=== PATIENT | male | born 1970 | race Caucasian/White ===

== ENCOUNTER 2022-04-30 09:29 | Emergency (ER) | payer OTHER ==
[~2022-04-30] VITALS: Ht 170.2 cm; Wt 97.7 kg
[2022-04-30] MEDS ORDERED: IBUPROFEN 600 MG TABLET PO ONE (09:45)
[2022-04-30 09:59] LABS: COVID AG,FIA SOURCE NASOPHARYNGEAL
[2022-04-30 10:04] LABS: BASOPHILS % (AUTO) 0.5 % (0.0-2.0); EOSINOPHILS % (AUTO) 2.1 % (1.0-6.0); HEMATOCRIT 46.5 % (41-53); HEMOGLOBIN 15.7 g/dL (13.5-17.5); LYMPHOCYTES # (AUTO) 1.2 K/uL (1.0-4.8); MEAN CORPUSCULAR HEMOGLOBIN 30.3 pg (26.0-34.0); MEAN CORPUSCULAR HGB CONC 33.8 G/dL (31.0-37.0); MEAN CORPUSCULAR VOLUME 90 fL (80-100); MONOCYTES # (AUTO) 0.8 K/uL (0.1-1.0); MONOCYTES % (AUTO) 11.9 % (2.0-9.0); NEUTROPHILS # (AUTO) 4.6 K/uL (1.8-7.7); NEUTROPHILS % (AUTO) 67.5 % (40.0-70.0); PLATELET COUNT (AUTO) 232 K/uL (150-450); RED BLOOD CELL COUNT(AUTO) 5.18 MIL/uL (4.50-5.90); RED CELL DISTRIBUTION WIDTH 13.3 % (11.5-14.5)
[2022-04-30 10:16] LABS: ANION GAP 6 mmol/L (8-16); CALCIUM, TOTAL 8.6 mg/dL (8.8-10.5); CARBON DIOXIDE 27 mmol/L (22-29); CHLORIDE 104 mmol/L (98-107); CREATININE 0.93 mg/dL (0.60-1.30); GLOMERULAR FILTR. RATE CALC > 60 mL/min (>60); GLUCOSE,RANDOM 103 mg/dL (70-110); POTASSIUM 3.7 mmol/L (3.5-5.1); SODIUM SERUM 137 mmol/L (136-145); UREA NITROGEN, BLOOD 13 mg/dL (7-18)
[2022-04-30 10:21] LABS: INFLUENZA TYPE A NEGATIVE FOR TYPE A (NEGATIVE); INFLUENZA TYPE B NEGATIVE FOR TYPE B (NEGATIVE)
[2022-04-30 11:09] LABS: RAPID GROUP A STREP NEGATIVE (NEGATIVE)
[2022-04-30 11:29] VITALS: BP 121/90
[2022-04-30] MEDS ORDERED: IBUP-1492 PO (11:35)
[2022-04-30] MEDS ORDERED: BENZ-227 PO (11:35)
== END 2022-04-30 12:20 | disposition home or self-care (01) ==
LOC: EMS 09:34
DX: R07.89 Other chest pain (principal); J02.9 Acute pharyngitis, unspecified; J40 Bronchitis, not specified as acute or chronic; I10 Essential (primary) hypertension; Z20.822 Contact with and (suspected) exposure to COVID-19
CPT/HCPCS: 71045; 80048; 84484; 85025; 87430; 87804; 93005; 99285; 36415-L1; 36415-TC

== ENCOUNTER 2024-04-20 12:57 | Emergency (ER) | payer OTHER ==
[~2024-04-20] VITALS: Ht 172.7 cm; Wt 86.4 kg
[~2024-04-20 12:57] MED LIST: BENZ-227 PO; IBUP-1492 PO
[2024-04-20 13:31] VITALS: TEMP 98.7
[2024-04-20 13:41] LABS: COVID AG,FIA SOURCE NASAL SWAB
[2024-04-20 14:17] LABS: INFLUENZA TYPE A NEGATIVE FOR TYPE A (NEGATIVE); INFLUENZA TYPE B NEGATIVE FOR TYPE B (NEGATIVE); SARS-COV2 (COVID) ANTIGEN,FIA Negative (Negative)
[2024-04-20] MEDS: AMOX TR/POT CLAV 875 MG/125 MG TABLET PO ONE (16:06)
[2024-04-20] MEDS: BENZONATATE 100 MG CAPSULE PO ONE (16:06)
[2024-04-20] MEDS ORDERED: AMOX-457 PO (17:25)
[2024-04-20] MEDS ORDERED: ALBU18HF12 IH (17:25)
[2024-04-20] MEDS ORDERED: IBUP-1492 PO (17:25)
[2024-04-20] MEDS ORDERED: BENZ-227 PO (17:25)
[2024-04-20 17:37] VITALS: BP 144/82; PULSE 81; RESP 16; O2SAT 97
== END 2024-04-20 17:38 | disposition home or self-care (01) ==
LOC: EMS 12:57
DX: J40 Bronchitis, not specified as acute or chronic (principal); E78.00 Pure hypercholesterolemia, unspecified; F12.90 Cannabis use, unspecified, uncomplicated; Z20.822 Contact with and (suspected) exposure to COVID-19
CPT/HCPCS: 71046; 87804; 99284